=== PATIENT | male | born 1950 | race Caucasian/White ===

== ENCOUNTER → 2021-09-23 | Day surgery (SDC) | payer OTHER ==
[~2021-09-23] VITALS: Ht 170.2 cm; Wt 74.8 kg
[~2021-09-23] MED LIST: BENADRYL25 MG PO; CIALIS5 MG PO; KEFLEX250 MG PO; MOTRIN600 MG PO; PRINIVIL20 MG PO; TRIAMCINOLONE 080 GM TOP; VITAMIN B122500 MC1 PO; VITAMIN D1000 UNIT PO; ZANTAC150 M1 PO
[2021-09-23 09:02] LABS: HGB 16.8 g/dl (13.2-18.0); MCH 30.8 pg (25.0-31.0); MCHC 33.6 g/dL (32.0-36.0); MCV 91.6 fL (78.0-100.0); MPV 9.1 fL (6.0-9.5); RBC 5.46 M/uL (4.70-6.00)
[2021-09-23 09:22] LABS: ALBUMIN 4.5 g/dL (3.4-5.0); BUN/CREAT RATIO (CALC) 17.6 RATIO; CREATININE 0.91 mg/dL (0.67-1.17); GLOBULIN (CALCULATION) 3.9 g/dL; POTASSIUM 4.3 mmol/L (3.5-5.1); TOTAL PROTEIN 8.4 g/dL (6.4-8.2)
== END | disposition home or self-care (01) ==
LOC: FAS 08:03
PROVIDERS: Surgery
DX: Z12.11 Encounter for screening for malignant neoplasm of colon (principal); I10 Essential (primary) hypertension; Z87.891 Personal history of nicotine dependence; Z79.899 Other long term (current) drug therapy
CPT/HCPCS: 36415; 80053; J2704; J7120